=== PATIENT | female | born 1935 | race Asian ===

== ENCOUNTER 2019-03-23 16:26 | Inpatient (IN) | payer OTHER, MEDICAID ==
[~2019-03-23] VITALS: Ht 154.9 cm; Wt 53.5 kg
[2019-03-23 16:36] VITALS: BP_SYST 124; BP_SYST 151
[2019-03-23 18:46] LABS: BASOPHILS % (AUTO) 0.5 % (0.0-2.0); EOSINOPHILS # (AUTO) 0.1 K/uL (0.0-0.4); EOSINOPHILS % (AUTO) 1.9 % (0.0-4.0); HEMATOCRIT 37.6 % (36-48); HEMOGLOBIN 12.7 g/dL (12.0-16.0); LYMPHOCYTES # (AUTO) 1.3 K/uL (1.0-5.5); LYMPHOCYTES % (AUTO) 17.8 % (20.5-51.5); MEAN CORPUSCULAR HEMOGLOBIN 30 pg (27-31); MEAN CORPUSCULAR HGB CONC 34 % (32-36); MEAN CORPUSCULAR VOLUME 89 fL (79.0-98.0); MONOCYTES # (AUTO) 0.6 K/uL (0.0-1.0); MONOCYTES % (AUTO) 8.6 % (1.7-9.3); NEUTROPHILS # (AUTO) 5.1 K/uL (1.8-7.7); NEUTROPHILS % (AUTO) 71.2 % (40.0-70.0); PLATELET COUNT (AUTO) 276 K/uL (130-430); RED CELL DISTRIBUTION WIDTH 13.7 % (9.0-15.0); WHITE BLOOD COUNT (AUTO) 7.2 K/uL (4.8-10.8)
[2019-03-23 18:51] LABS: INR 0.9 (0.8-1.2); PROTHROMBIN TIME 9.5 SECS (9.5-12.5)
[2019-03-23 18:52] LABS: ANION GAP 4 (5-15); CALCIUM 8.5 mg/dL (8.4-11.0); CHLORIDE 107 mmol/L (98-107); CREATININE 0.55 mg/dL (0.55-1.30); GLUCOSE 85 mg/dL (70-99); SODIUM SERUM 141 mmol/L (136-145); UREA NITROGEN, BLOOD 18 mg/dL (8-21)
[2019-03-23 19:03] LABS: ALANINE AMINOTRANSFERASE 37 U/L (12-78); ALBUMIN 2.9 g/dL (3.4-4.8); ASPARTATE AMINOTRANSFERASE 22 U/L (10-37); FREE T4 (FREE THYROXINE) 1.4 ng/dl (0.8-1.5); TOTAL BILIRUBIN 0.3 mg/dL (0.0-1.0)
[2019-03-23 19:08] LABS: ALCOHOL, BLOOD < 3 mg/dL (<10)
[2019-03-23] MEDS ORDERED: DOCU-144 GT (20:22)
[2019-03-23] MEDS ORDERED: BISA10SU61 RC (20:22)
[2019-03-23] MEDS ORDERED: BISA5TAB10 PO (20:22)
[2019-03-23] MEDS ORDERED: SODI1TAB24 GT (20:22)
[2019-03-23] MEDS ORDERED: CALC-808 GT (20:22)
[2019-03-23] MEDS ORDERED: FLEETMO RC (20:22)
[2019-03-23] MEDS ORDERED: ACET325T53 GT (20:22)
[2019-03-23] MEDS ORDERED: ACET-73 GT (20:22)
[2019-03-23] MEDS ORDERED: ASCO500T20 PO (20:22)
[2019-03-23] MEDS ORDERED: INDA75CA IH (20:22)
[2019-03-23] MEDS ORDERED: LACO100T2 GT (20:22)
[2019-03-23] MEDS ORDERED: LACT250L14 GT (20:22)
[2019-03-23] MEDS ORDERED: MOM GT (20:22)
[2019-03-23] MEDS ORDERED: OMEP40CA33 GT (20:22)
[2019-03-23] MEDS ORDERED: ACET325C3 GT (20:22)
[2019-03-23 21:42] VITALS: BP_SYST 138
[2019-03-23] MEDS ORDERED: VANCOMYCIN HCL 1,000 MG in NS 250 ML IV SCH (22:00)
[2019-03-23] MEDS: NORMAL SALINE 5 ML DISP.SYRIN IVF SCH (22:00)
[2019-03-23] MEDS ORDERED: VANCOMYCIN HCL 1000 MG/VIAL IV ONE (23:15)
[2019-03-24 02:43] VITALS: BP_SYST 148
[2019-03-24] MEDS: NORMAL SALINE 5 ML DISP.SYRIN IVF SCH ×3 (06:00→21:21)
[2019-03-24 08:25] VITALS: BP_SYST 136
[2019-03-24] MEDS ORDERED: VANCOMYCIN HCL 1,000 MG in NS 250 ML IV SCH (09:00)
[2019-03-24 12:28] VITALS: BP_SYST 138
[2019-03-24] MEDS ORDERED: ASCORBIC ACID 500 MG TABLET GT ONE (13:45)
[2019-03-24] MEDS ORDERED: ASCORBIC ACID 500 MG TABLET PO ONE (13:45)
[2019-03-24] MEDS ORDERED: CALCIUM CARBONATE/VITAMIN D3 1 TAB TABLET GT ONE (14:00)
[2019-03-24] MEDS ORDERED: MINERAL OIL 133 ML ENEMA RC PRN (14:00)
[2019-03-24] MEDS ORDERED: DOCUSATE SODIUM 100 MG/10 ML UDC GT PRN (14:00)
[2019-03-24 15:10] VITALS: BP_SYST 126
[2019-03-24 20:00] VITALS: BP_SYST 159
[2019-03-24] MEDS: VANCOMYCIN HCL 500 MG in NS 100 ML IV SCH (22:48)
[2019-03-25 00:39] VITALS: BP_SYST 147
[2019-03-25 06:28] LABS: BASOPHILS % (AUTO) 0.6 % (0.0-2.0); EOSINOPHILS # (AUTO) 0.1 K/uL (0.0-0.4); EOSINOPHILS % (AUTO) 1.5 % (0.0-4.0); HEMATOCRIT 38.5 % (36-48); HEMOGLOBIN 12.9 g/dL (12.0-16.0); LYMPHOCYTES # (AUTO) 1.2 K/uL (1.0-5.5); LYMPHOCYTES % (AUTO) 16.9 % (20.5-51.5); MEAN CORPUSCULAR HEMOGLOBIN 30 pg (27-31); MEAN CORPUSCULAR HGB CONC 34 % (32-36); MEAN CORPUSCULAR VOLUME 90 fL (79.0-98.0); MONOCYTES # (AUTO) 0.6 K/uL (0.0-1.0); MONOCYTES % (AUTO) 8.9 % (1.7-9.3); NEUTROPHILS # (AUTO) 5.1 K/uL (1.8-7.7); NEUTROPHILS % (AUTO) 72.1 % (40.0-70.0); PLATELET COUNT (AUTO) 273 K/uL (130-430); RED BLOOD CELL COUNT(AUTO) 4.29 MIL/uL (4.2-6.2); RED CELL DISTRIBUTION WIDTH 13.4 % (9.0-15.0)
[2019-03-25 07:10] LABS: ANION GAP 4 (5-15); CHLORIDE 107 mmol/L (98-107); CREATININE 0.47 mg/dL (0.55-1.30); GLUCOSE 96 mg/dL (70-99); SODIUM SERUM 141 mmol/L (136-145); UREA NITROGEN, BLOOD 17 mg/dL (8-21)
[2019-03-25 07:21] LABS: CALCIUM 8.8 mg/dL (8.4-11.0)
[2019-03-25 08:10] VITALS: BP_SYST 159
[2019-03-25] MEDS: MILK OF MAGNESIA 30 ML UDC GT SCH (09:16)
[2019-03-25] MEDS: ACETAMINOPHEN 650 MG/20.3 ML UDC GT SCH (09:16)
[2019-03-25] MEDS: BISACODYL 5 MG TABLET.DR (DULCOLAX) GT SCH (09:17)
[2019-03-25] MEDS: LACOSAMIDE 100 MG TABLET GT SCH (09:17)
[2019-03-25] MEDS: LANSOPRAZOLE 30 MG CAPSULE.DR GT SCH (09:17)
[2019-03-25] MEDS: CALCIUM CARBONATE/VITAMIN D3 1 TAB TABLET GT SCH (09:17)
[2019-03-25] MEDS: ASCORBIC ACID 500 MG TABLET GT SCH (09:17)
[2019-03-25] MEDS: NORMAL SALINE 5 ML DISP.SYRIN IVF SCH ×2 (09:18→23:23)
[2019-03-25 11:20] VITALS: BP_SYST 146
[2019-03-25 15:22] VITALS: BP_SYST 129
[2019-03-25 20:00] VITALS: BP_SYST 153
[2019-03-25] MEDS: VANCOMYCIN HCL 500 MG in NS 100 ML IV SCH (23:22)
[2019-03-26 00:58] VITALS: BP_SYST 114
[2019-03-26] MEDS: NORMAL SALINE 5 ML DISP.SYRIN IVF SCH ×3 (06:34→21:44)
[2019-03-26 06:48] LABS: BASOPHILS # (AUTO) 0.1 K/uL (0.0-0.2); BASOPHILS % (AUTO) 0.7 % (0.0-2.0); EOSINOPHILS # (AUTO) 0.1 K/uL (0.0-0.4); EOSINOPHILS % (AUTO) 1.5 % (0.0-4.0); HEMATOCRIT 39.1 % (36-48); HEMOGLOBIN 13.2 g/dL (12.0-16.0); LYMPHOCYTES # (AUTO) 1.3 K/uL (1.0-5.5); LYMPHOCYTES % (AUTO) 18.4 % (20.5-51.5); MEAN CORPUSCULAR HEMOGLOBIN 30 pg (27-31); MEAN CORPUSCULAR HGB CONC 34 % (32-36); MEAN CORPUSCULAR VOLUME 89 fL (79.0-98.0); MONOCYTES # (AUTO) 0.6 K/uL (0.0-1.0); MONOCYTES % (AUTO) 8.7 % (1.7-9.3); NEUTROPHILS # (AUTO) 4.9 K/uL (1.8-7.7); NEUTROPHILS % (AUTO) 70.7 % (40.0-70.0); PLATELET COUNT (AUTO) 277 K/uL (130-430); RED BLOOD CELL COUNT(AUTO) 4.39 MIL/uL (4.2-6.2); RED CELL DISTRIBUTION WIDTH 13.6 % (9.0-15.0); WHITE BLOOD COUNT (AUTO) 6.9 K/uL (4.8-10.8)
[2019-03-26 07:11] LABS: ANION GAP 6 (5-15); CALCIUM 8.7 mg/dL (8.4-11.0); CHLORIDE 108 mmol/L (98-107); CREATININE 0.57 mg/dL (0.55-1.30); GLUCOSE 91 mg/dL (70-99); POTASSIUM 4.2 mmol/L (3.5-5.1); SODIUM SERUM 143 mmol/L (136-145); UREA NITROGEN, BLOOD 17 mg/dL (8-21)
[2019-03-26 07:47] VITALS: BP_SYST 114; BP_SYST 133
[2019-03-26] MEDS ORDERED: MUPIROCIN 2% TOPICAL OINTMENT 22 GM TP SCH (09:00)
[2019-03-26 11:15] VITALS: BP_SYST 110
[2019-03-26] MEDS: LANSOPRAZOLE 30 MG CAPSULE.DR GT SCH (11:45)
[2019-03-26] MEDS: MILK OF MAGNESIA 30 ML UDC GT SCH (11:45)
[2019-03-26] MEDS: MUPIROCIN 2% TOPICAL OINTMENT 22 GM NS SCH ×2 (11:45→21:43)
[2019-03-26] MEDS: BISACODYL 5 MG TABLET.DR (DULCOLAX) GT SCH (11:45)
[2019-03-26] MEDS: ACETAMINOPHEN 650 MG/20.3 ML UDC GT SCH (11:46)
[2019-03-26] MEDS: LACOSAMIDE 100 MG TABLET GT SCH (11:46)
[2019-03-26] MEDS: ASCORBIC ACID 500 MG TABLET GT SCH (11:46)
[2019-03-26] MEDS: CALCIUM CARBONATE/VITAMIN D3 1 TAB TABLET GT SCH (11:46)
[2019-03-26 17:21] VITALS: BP_SYST 123
[2019-03-26 20:00] VITALS: BP_SYST 135
[2019-03-26] MEDS: VANCOMYCIN HCL 500 MG in NS 100 ML IV SCH (22:11)
[2019-03-26] MEDS ORDERED: ACETAMINOPHEN 650 MG/20.3 ML UDC GT PRN (23:15)
[2019-03-27 00:51] VITALS: BP_SYST 155
[2019-03-27] MEDS: NORMAL SALINE 5 ML DISP.SYRIN IVF SCH ×2 (06:56→21:00)
[2019-03-27 08:00] VITALS: BP_SYST 133
[2019-03-27] MEDS: LACOSAMIDE 100 MG TABLET GT SCH (09:38)
[2019-03-27] MEDS: ASCORBIC ACID 500 MG TABLET GT SCH (09:39)
[2019-03-27] MEDS: LANSOPRAZOLE 30 MG CAPSULE.DR GT SCH (09:39)
[2019-03-27] MEDS: BISACODYL 5 MG TABLET.DR (DULCOLAX) GT SCH (09:39)
[2019-03-27] MEDS: CALCIUM CARBONATE/VITAMIN D3 1 TAB TABLET GT SCH (09:39)
[2019-03-27] MEDS: ACETAMINOPHEN 650 MG/20.3 ML UDC GT SCH (09:40)
[2019-03-27] MEDS: MILK OF MAGNESIA 30 ML UDC GT SCH (09:41)
[2019-03-27] MEDS: MUPIROCIN 2% TOPICAL OINTMENT 22 GM NS SCH ×2 (09:42→21:08)
[2019-03-27 11:24] VITALS: BP_SYST 125
[2019-03-27 15:13] VITALS: BP_SYST 129
[2019-03-27 20:32] VITALS: BP_SYST 149
[2019-03-27 20:47] VITALS: BP_SYST 149
[2019-03-27] MEDS ORDERED: VANCOMYCIN HCL 750 MG in NS 250 ML IV SCH (23:00)
[2019-03-28 01:58] VITALS: BP_SYST 147
== END 2019-03-28 00:02 | DRG 539 ==
LOC: SED 16:26 → SMU 19:29
PROVIDERS: ADMIT Internal Medicine; ATTEND Internal Medicine
DX: M86.8X7 Other osteomyelitis, ankle and foot (principal); G93.41 Metabolic encephalopathy; L03.115 Cellulitis of right lower limb; E44.1 Mild protein-calorie malnutrition; L89.899 Pressure ulcer of other site, unspecified stage; G40.909 Epilepsy, unspecified, not intractable, without status epilepticus; F03.90 Unspecified dementia, unspecified severity, without behavioral disturbance, psychotic disturbance, mood disturbance, and anxiety; I10 Essential (primary) hypertension; J44.9 Chronic obstructive pulmonary disease, unspecified; K56.41 Fecal impaction; M21.612 Bunion of left foot; M21.611 Bunion of right foot; Z66 Do not resuscitate; Z51.5 Encounter for palliative care; M21.172 Varus deformity, not elsewhere classified, left ankle; M21.171 Varus deformity, not elsewhere classified, right ankle; R13.10 Dysphagia, unspecified; Z93.1 Gastrostomy status; Z79.899 Other long term (current) drug therapy; Z22.322 Carrier or suspected carrier of Methicillin resistant Staphylococcus aureus; Z68.22 Body mass index [BMI] 22.0-22.9, adult
CPT/HCPCS: 36415; 71045; 74018; 78315; 80048; 80053; 80202-TC; 82140-TC; 83605; 83880; 84439; 84484; 85025; 85610-TC; 87040-TC; 87081; 93005; 99285; A9503; G0482; J3370; J7050

== ENCOUNTER 2019-08-24 12:22 | Inpatient (IN) | payer OTHER, MEDICAID ==
[~2019-08-24] VITALS: Ht 144.8 cm; Wt 59.0 kg
[2019-08-24 12:22] VITALS: BP_SYST 143
[~2019-08-24 12:22] MED LIST: ACET-73 GT; ACET325C3 GT; ACET325T53 GT; ASCO500T20 PO; BISA10SU61 RC; BISA5TAB10 PO; CALC-808 GT; DOCU-144 GT; FLEETMO RC; INDA75CA IH; LACO100T2 GT; LACT250L14 GT; MOM GT; OMEP40CA33 GT; SODI1TAB24 GT
[2019-08-24] MEDS ORDERED: NACL 0.9% 1,000 ML IV ONE ×2 (12:45→15:30)
[2019-08-24] MEDS ORDERED: IBUPROFEN 400 MG TABLET PO ONE (12:45)
[2019-08-24] MEDS ORDERED: ACETAMINOPHEN 500 MG TABLET PO ONE (12:45)
[2019-08-24] MEDS ORDERED: IPRATROPIUM/ALBUTEROL SULFATE 3 ML AMPUL.NEB (DUONEB) INH ONE (13:00)
[2019-08-24 13:12] LABS: BASOPHILS % (AUTO) 0.2 % (0.0-2.0); EOSINOPHILS % (AUTO) 0.2 % (0.0-4.0); HEMATOCRIT 39.5 % (36-48); LYMPHOCYTES # (AUTO) 0.9 K/uL (1.0-5.5); LYMPHOCYTES % (AUTO) 7.5 % (20.5-51.5); MEAN CORPUSCULAR HEMOGLOBIN 28 pg (27-31); MEAN CORPUSCULAR HGB CONC 33 % (32-36); MEAN CORPUSCULAR VOLUME 86 fL (79.0-98.0); MONOCYTES # (AUTO) 1.1 K/uL (0.0-1.0); MONOCYTES % (AUTO) 9.6 % (1.7-9.3); NEUTROPHILS # (AUTO) 9.5 K/uL (1.8-7.7); NEUTROPHILS % (AUTO) 82.5 % (40.0-70.0); PLATELET COUNT (AUTO) 274 K/uL (130-430); RED BLOOD CELL COUNT(AUTO) 4.59 MIL/uL (4.2-6.2); RED CELL DISTRIBUTION WIDTH 14.9 % (9.0-15.0); WHITE BLOOD COUNT (AUTO) 11.5 K/uL (4.8-10.8)
[2019-08-24 13:26] LABS: ANION GAP 9 (5-15); CALCIUM 8.5 mg/dL (8.4-11.0); CHLORIDE 97 mmol/L (98-107); CREATININE 0.53 mg/dL (0.55-1.30); GLUCOSE 90 mg/dL (70-99); POTASSIUM 4.3 mmol/L (3.5-5.1); SODIUM SERUM 132 mmol/L (136-145); UREA NITROGEN, BLOOD 15 mg/dL (8-21)
[2019-08-24 13:39] LABS: ALANINE AMINOTRANSFERASE 82 U/L (12-78); ALBUMIN 2.6 g/dL (3.4-4.8); ASPARTATE AMINOTRANSFERASE 61 U/L (10-37); TOTAL BILIRUBIN 0.5 mg/dL (0.0-1.0)
[2019-08-24 14:06] LABS: BILIRUBIN,URINE NEGATIVE (NEGATIVE); BLOOD, URINE NEGATIVE (NEGATIVE); CLARITY/URINE CLEAR (CLEAR); COLOR,URINE YELLOW (YELLOW); GLUCOSE,URINE NEGATIVE (NEGATIVE); KETONES,URINE NEGATIVE (NEGATIVE); LEUKOCYTE ESTERASE ,URINE NEGATIVE (NEGATIVE); NITRITE, URINE NEGATIVE (NEGATIVE); PH,URINE 7.5 (5.0-8.0); PROTEIN URINE 1+ (NEGATIVE)
[2019-08-24 14:19] LABS: BACTERIA,URINE FEW /HPF (None Seen); RBC,URINE 0-3 /HPF (0-3); WBC,URINE 0-3 /HPF (0-3)
[2019-08-24] MEDS ORDERED: PIPERACILLIN/TAZO 3.375 GM in NS 50 ML IV ONE (14:30)
[2019-08-24] MEDS ORDERED: PIPERACILLIN/TAZOBACTAM 3.375 GM/VIAL (ZOSYN) IV ONE (14:55)
[2019-08-24] MEDS ORDERED: AZITHROMYCIN 500 MG/VIAL (ZITHROMAX) IV ONE (16:40)
[2019-08-24] MEDS ORDERED: NOREPINEPHRINE BITARTRATE 4 MG in NS 246 ML IV ONE (16:45)
[2019-08-24] MEDS ORDERED: NOREPINEPHRINE 4 MG/4 ML VIAL IV ONE (16:48)
[2019-08-24 17:40] VITALS: BP_SYST 108
[2019-08-24] MEDS ORDERED: AZITHROMYCIN 500 MG in NS 250 ML IV SCH (19:00)
[2019-08-24 21:22] VITALS: BP_SYST 111
[2019-08-24] MEDS: PIPERACILLIN/TAZO 3.375/DEX-IS 50 ML IV SCH (23:15)
[2019-08-25 00:25] VITALS: BP_SYST 102
[2019-08-25] MEDS ORDERED: BISACODYL 10 MG/SUPPOSITORY RC SCH (02:45)
[2019-08-25] MEDS ORDERED: ACETAMINOPHEN 650 MG/20.3 ML UDC GT PRN (02:45)
[2019-08-25] MEDS ORDERED: MINERAL OIL 133 ML ENEMA RC PRN (02:45)
[2019-08-25] MEDS ORDERED: DOCUSATE SODIUM 100 MG CAPSULE PO PRN (02:45)
[2019-08-25] MEDS ORDERED: ACETAMINOPHEN 325 MG TABLET GT PRN (02:45)
[2019-08-25] MEDS: LEVOFLOXACIN 250 MG/D5W 50 ML IV SCH (03:45)
[2019-08-25] MEDS ORDERED: LEVOFLOXACIN 250 MG/D5W 50 ML IV ONE (03:55)
[2019-08-25 04:50] VITALS: BP_SYST 102
[2019-08-25] MEDS: PIPERACILLIN/TAZO 3.375/DEX-IS 50 ML IV SCH ×4 (05:26→23:45)
[2019-08-25 07:20] LABS: BASOPHILS % (AUTO) 0.3 % (0.0-2.0); EOSINOPHILS # (AUTO) 0.1 K/uL (0.0-0.4); EOSINOPHILS % (AUTO) 1.1 % (0.0-4.0); HEMATOCRIT 34.7 % (36-48); HEMOGLOBIN 11.4 g/dL (12.0-16.0); LYMPHOCYTES # (AUTO) 0.6 K/uL (1.0-5.5); LYMPHOCYTES % (AUTO) 6.3 % (20.5-51.5); MEAN CORPUSCULAR HEMOGLOBIN 28 pg (27-31); MEAN CORPUSCULAR HGB CONC 33 % (32-36); MEAN CORPUSCULAR VOLUME 87 fL (79.0-98.0); MONOCYTES # (AUTO) 0.9 K/uL (0.0-1.0); MONOCYTES % (AUTO) 10.2 % (1.7-9.3); NEUTROPHILS # (AUTO) 7.4 K/uL (1.8-7.7); NEUTROPHILS % (AUTO) 82.1 % (40.0-70.0); PLATELET COUNT (AUTO) 229 K/uL (130-430); RED BLOOD CELL COUNT(AUTO) 4.01 MIL/uL (4.2-6.2); RED CELL DISTRIBUTION WIDTH 15.1 % (9.0-15.0)
[2019-08-25 07:40] LABS: ALANINE AMINOTRANSFERASE 65 U/L (12-78); ANION GAP 9 (5-15); ASPARTATE AMINOTRANSFERASE 43 U/L (10-37); CALCIUM 7.6 mg/dL (8.4-11.0); CHLORIDE 103 mmol/L (98-107); CREATININE 0.53 mg/dL (0.55-1.30); GLUCOSE 111 mg/dL (70-99); SODIUM SERUM 136 mmol/L (136-145); TOTAL BILIRUBIN 0.4 mg/dL (0.0-1.0); UREA NITROGEN, BLOOD 14 mg/dL (8-21)
[2019-08-25] MEDS: IPRATROPIUM BROM 0.5 MG/2.5 ML VIAL.NEB (ATROVENT) INH SCH ×5 (07:52→23:34)
[2019-08-25 08:08] VITALS: BP_SYST 123
[2019-08-25] MEDS: MILK OF MAGNESIA 30 ML UDC GT SCH (09:13)
[2019-08-25] MEDS: LACOSAMIDE 100 MG TABLET GT SCH ×2 (09:13→21:06)
[2019-08-25] MEDS: ASCORBIC ACID 500 MG TABLET PO SCH (09:13)
[2019-08-25] MEDS: LANSOPRAZOLE 30 MG CAPSULE.DR GT SCH (09:14)
[2019-08-25] MEDS: SODIUM CHLORIDE 500 MG TABLET GT SCH ×2 (09:14→21:06)
[2019-08-25] MEDS: ACETAMINOPHEN 500 MG TABLET GT SCH (09:14)
[2019-08-25] MEDS: CALCIUM CARBONATE/VITAMIN D3 1 TAB TABLET GT SCH (09:15)
[2019-08-25 12:00] VITALS: BP_SYST 107
[2019-08-25 17:25] VITALS: BP_SYST 146
[2019-08-25 20:00] VITALS: BP_SYST 159
[2019-08-25] MEDS: ALBUTEROL SULFATE 0.083% 2.5 MG/3 ML VIAL.NEB INH PRN ×2 (20:09→23:34)
[2019-08-26 01:16] VITALS: BP_SYST 136
[2019-08-26] MEDS: IPRATROPIUM BROM 0.5 MG/2.5 ML VIAL.NEB (ATROVENT) INH SCH ×6 (02:25→23:27)
[2019-08-26] MEDS: LEVOFLOXACIN 250 MG/D5W 50 ML IV SCH (03:55)
[2019-08-26 04:20] VITALS: BP_SYST 106
[2019-08-26] MEDS: PIPERACILLIN/TAZO 3.375/DEX-IS 50 ML IV SCH ×2 (06:35→13:26)
[2019-08-26 08:00] VITALS: BP_SYST 175
[2019-08-26] MEDS: MILK OF MAGNESIA 30 ML UDC GT SCH (10:22)
[2019-08-26] MEDS: BISACODYL 5 MG TABLET.DR (DULCOLAX) PO PRN (10:23)
[2019-08-26] MEDS: LANSOPRAZOLE 30 MG CAPSULE.DR GT SCH (10:23)
[2019-08-26] MEDS: LACOSAMIDE 100 MG TABLET GT SCH ×2 (10:23→23:06)
[2019-08-26] MEDS: ACETAMINOPHEN 500 MG TABLET GT SCH (10:23)
[2019-08-26] MEDS: SODIUM CHLORIDE 500 MG TABLET GT SCH ×2 (10:24→23:06)
[2019-08-26] MEDS: ASCORBIC ACID 500 MG TABLET PO SCH (10:31)
[2019-08-26] MEDS: CALCIUM CARBONATE/VITAMIN D3 1 TAB TABLET GT SCH (10:31)
[2019-08-26 12:25] VITALS: BP_SYST 163
[2019-08-26 16:26] VITALS: BP_SYST 151
[2019-08-26] MEDS: PIPERACILLIN/TAZO 2.25G/DEX-IS 50 ML IV SCH ×2 (18:11→23:16)
[2019-08-27 01:19] VITALS: BP_SYST 150
[2019-08-27] MEDS: IPRATROPIUM BROM 0.5 MG/2.5 ML VIAL.NEB (ATROVENT) INH SCH ×5 (03:05→23:00)
[2019-08-27] MEDS: LEVOFLOXACIN 250 MG/D5W 50 ML IV SCH (03:47)
[2019-08-27] MEDS: PIPERACILLIN/TAZO 2.25G/DEX-IS 50 ML IV SCH ×4 (05:25→23:32)
[2019-08-27 07:08] LABS: BASOPHILS % (AUTO) 0.5 % (0.0-2.0); EOSINOPHILS # (AUTO) 0.1 K/uL (0.0-0.4); EOSINOPHILS % (AUTO) 1.9 % (0.0-4.0); HEMATOCRIT 33.6 % (36-48); HEMOGLOBIN 11.1 g/dL (12.0-16.0); LYMPHOCYTES # (AUTO) 0.8 K/uL (1.0-5.5); LYMPHOCYTES % (AUTO) 16.2 % (20.5-51.5); MEAN CORPUSCULAR HEMOGLOBIN 28 pg (27-31); MEAN CORPUSCULAR HGB CONC 33 % (32-36); MEAN CORPUSCULAR VOLUME 85 fL (79.0-98.0); MONOCYTES # (AUTO) 0.7 K/uL (0.0-1.0); MONOCYTES % (AUTO) 14.5 % (1.7-9.3); NEUTROPHILS # (AUTO) 3.4 K/uL (1.8-7.7); NEUTROPHILS % (AUTO) 66.9 % (40.0-70.0); PLATELET COUNT (AUTO) 279 K/uL (130-430); RED BLOOD CELL COUNT(AUTO) 3.94 MIL/uL (4.2-6.2); RED CELL DISTRIBUTION WIDTH 14.9 % (9.0-15.0); WHITE BLOOD COUNT (AUTO) 5.1 K/uL (4.8-10.8)
[2019-08-27 07:42] LABS: ALANINE AMINOTRANSFERASE 53 U/L (12-78); ANION GAP 7 (5-15); ASPARTATE AMINOTRANSFERASE 32 U/L (10-37); CALCIUM 7.8 mg/dL (8.4-11.0); CHLORIDE 101 mmol/L (98-107); CREATININE 0.51 mg/dL (0.55-1.30); GLUCOSE 103 mg/dL (70-99); POTASSIUM 4.1 mmol/L (3.5-5.1); SODIUM SERUM 135 mmol/L (136-145); TOTAL BILIRUBIN 0.3 mg/dL (0.0-1.0); UREA NITROGEN, BLOOD 15 mg/dL (8-21)
[2019-08-27 08:00] VITALS: BP_SYST 140
[2019-08-27] MEDS: ACETAMINOPHEN 500 MG TABLET GT SCH (09:42)
[2019-08-27] MEDS: LANSOPRAZOLE 30 MG CAPSULE.DR GT SCH (09:42)
[2019-08-27] MEDS: ASCORBIC ACID 500 MG TABLET PO SCH (09:43)
[2019-08-27] MEDS: CALCIUM CARBONATE/VITAMIN D3 1 TAB TABLET GT SCH (09:43)
[2019-08-27] MEDS: SODIUM CHLORIDE 500 MG TABLET GT SCH ×2 (09:43→21:42)
[2019-08-27] MEDS: MILK OF MAGNESIA 30 ML UDC GT SCH (09:44)
[2019-08-27] MEDS: LACOSAMIDE 100 MG TABLET GT SCH ×2 (09:44→21:42)
[2019-08-27 12:11] VITALS: BP_SYST 129
[2019-08-27 16:03] VITALS: BP_SYST 142
[2019-08-27 20:45] VITALS: BP_SYST 140
[2019-08-28 00:11] VITALS: BP_SYST 164
[2019-08-28] MEDS: IPRATROPIUM BROM 0.5 MG/2.5 ML VIAL.NEB (ATROVENT) INH SCH ×6 (03:20→23:34)
[2019-08-28] MEDS: LEVOFLOXACIN 250 MG/D5W 50 ML IV SCH (03:24)
[2019-08-28] MEDS: PIPERACILLIN/TAZO 2.25G/DEX-IS 50 ML IV SCH ×4 (05:25→23:02)
[2019-08-28 08:11] VITALS: BP_SYST 146
[2019-08-28] MEDS: MILK OF MAGNESIA 30 ML UDC GT SCH (10:37)
[2019-08-28] MEDS: SODIUM CHLORIDE 500 MG TABLET GT SCH ×2 (10:37→21:00)
[2019-08-28] MEDS: ACETAMINOPHEN 500 MG TABLET GT SCH (10:38)
[2019-08-28] MEDS: BISACODYL 5 MG TABLET.DR (DULCOLAX) PO PRN (10:38)
[2019-08-28] MEDS: LANSOPRAZOLE 30 MG CAPSULE.DR GT SCH (10:38)
[2019-08-28] MEDS: ASCORBIC ACID 500 MG TABLET PO SCH (10:38)
[2019-08-28] MEDS: CALCIUM CARBONATE/VITAMIN D3 1 TAB TABLET GT SCH (10:38)
[2019-08-28] MEDS: LACOSAMIDE 100 MG TABLET GT SCH ×2 (10:39→21:00)
[2019-08-28 11:20] VITALS: BP_SYST 146
[2019-08-28 12:49] VITALS: BP_SYST 135
[2019-08-28 16:45] VITALS: BP_SYST 129
[2019-08-28 20:00] VITALS: BP_SYST 130
[2019-08-29 01:20] VITALS: BP_SYST 175
[2019-08-29] MEDS: LEVOFLOXACIN 250 MG/D5W 50 ML IV SCH (03:30)
[2019-08-29] MEDS: IPRATROPIUM BROM 0.5 MG/2.5 ML VIAL.NEB (ATROVENT) INH SCH ×2 (03:37→08:09)
[2019-08-29] MEDS: PIPERACILLIN/TAZO 2.25G/DEX-IS 50 ML IV SCH (06:05)
[2019-08-29 08:00] VITALS: BP_SYST 146
[2019-08-29 08:41] VITALS: BP_SYST 149
[2019-08-29] MEDS: MILK OF MAGNESIA 30 ML UDC GT SCH ×2 (09:00→09:52)
[2019-08-29] MEDS: CALCIUM CARBONATE/VITAMIN D3 1 TAB TABLET GT SCH (09:51)
[2019-08-29] MEDS: ASCORBIC ACID 500 MG TABLET PO SCH (09:51)
[2019-08-29] MEDS: LANSOPRAZOLE 30 MG CAPSULE.DR GT SCH (09:52)
[2019-08-29] MEDS: SODIUM CHLORIDE 500 MG TABLET GT SCH (09:52)
[2019-08-29] MEDS: LACOSAMIDE 100 MG TABLET GT SCH (09:52)
[2019-08-29] MEDS: ACETAMINOPHEN 500 MG TABLET GT SCH (09:52)
== END 2019-08-29 10:25 | DRG 871 ==
LOC: SED 12:22 → STU 16:21 → SMU 08-25 23:44
PROVIDERS: ADMIT Internal Medicine Infectious Disease; ATTEND Internal Medicine Infectious Disease
DX: A41.9 Sepsis, unspecified organism (principal); J18.9 Pneumonia, unspecified organism; J44.0 Chronic obstructive pulmonary disease with (acute) lower respiratory infection; I10 Essential (primary) hypertension; F03.90 Unspecified dementia, unspecified severity, without behavioral disturbance, psychotic disturbance, mood disturbance, and anxiety; G40.909 Epilepsy, unspecified, not intractable, without status epilepticus; K56.41 Fecal impaction; Z93.1 Gastrostomy status
CPT/HCPCS: 36415; 71045; 74018; 80053; 81000-TC; 83605; 83880; 85025; 86710; 87040-TC; 87081; 87086; 93005; 94640; 96361; 96365; 99285; G0378; J0456; J1956; J2543; J7050; J7613

== ENCOUNTER 2020-09-21 08:57 | Inpatient (IN) | payer OTHER, MEDICAID, SELFPAY ==
[~2020-09-21] VITALS: Ht 147.3 cm; Wt 62.6 kg
[2020-09-21 08:57] VITALS: BP_SYST 112
[~2020-09-21 08:57] MED LIST changes: -ACET325C3 GT; +ACET325C5 GT; +OMEP40CA13 GT; -OMEP40CA33 GT
--- NOTE | 2020-09-21 08:57 | NUR ---
BROUGHT IN BY [facility] AND PLACED IN BED #4 AND TRIAGED. REPORT GIVEN TO ABIGAIL
--- NOTE | 2020-09-21 09:00 | NUR ---
PATIENT PLACED ONTO GURNEY INTO [facility] GOWN, MONITOR APPLIED, VITALS OBTAINED, TEMP AT TIME OF ARRIVAL 99.9, COVID PRECAUTIONS IN PLACE, PATIENT RESIDES AT [facility].
--- NOTE | 2020-09-21 09:05 | NUR ---
MD: MD AT BEDSIDE ASSESSING PATIENT, ORDERS OBTAINED.
--- NOTE | 2020-09-21 09:15 | NUR ---
LAB: SKI TOW OPERATOR AT BEDSIDE, BLOOD DRAW COMPLETED.
--- NOTE | 2020-09-21 09:20 | NUR ---
X-RAY: TECH AT BEDSIDE PERFORMING X-RAY PER ORDER.
--- NOTE | 2020-09-21 09:25 | NUR ---
STEPHEN 16F: INSERTED STEPHEN 16 F USING STERILE TECHNIQUE, PATIENT TOLERATED WELL.
--- NOTE | 2020-09-21 09:30 | NUR ---
BLOOD CULTURES: BLOOD CULTURES OBTAINED AND SENT TO LAB
[2020-09-21 09:57] LABS: BASOPHILS % (AUTO) 0.1 % (0.0-2.0); EOSINOPHILS # (AUTO) 0.2 K/uL (0.0-0.4); EOSINOPHILS % (AUTO) 1.5 % (0.0-4.0); HEMATOCRIT 35.6 % (36-48); HEMOGLOBIN 11.5 g/dL (12.0-16.0); LYMPHOCYTES # (AUTO) 0.4 K/uL (1.0-5.5); MEAN CORPUSCULAR HEMOGLOBIN 26 pg (27-31); MEAN CORPUSCULAR HGB CONC 32 % (32-36); MEAN CORPUSCULAR VOLUME 80 fL (79.0-98.0); MONOCYTES # (AUTO) 0.4 K/uL (0.0-1.0); MONOCYTES % (AUTO) 3.6 % (1.7-9.3); NEUTROPHILS # (AUTO) 9.6 K/uL (1.8-7.7); NEUTROPHILS % (AUTO) 90.8 % (40.0-70.0); PLATELET COUNT (AUTO) 307 K/uL (130-430); RED BLOOD CELL COUNT(AUTO) 4.46 MIL/uL (4.2-6.2); RED CELL DISTRIBUTION WIDTH 17.1 % (9.0-15.0); WHITE BLOOD COUNT (AUTO) 10.6 K/uL (4.8-10.8)
[2020-09-21 10:08] LABS: BILIRUBIN,URINE NEGATIVE (NEGATIVE); CLARITY/URINE SL CLOUDY (CLEAR); COLOR,URINE YELLOW (YELLOW); GLUCOSE,URINE NEGATIVE (NEGATIVE); KETONES,URINE NEGATIVE (NEGATIVE); LEUKOCYTE ESTERASE ,URINE 3+ (NEGATIVE); NITRITE, URINE NEGATIVE (NEGATIVE); PH,URINE 6.5 (5.0-8.0); PROTEIN URINE NEGATIVE (NEGATIVE); UROBILINOGEN,URINE 0.2 (0.2-1.0)
[2020-09-21 10:10] LABS: ANION GAP 10 (5-15); CHLORIDE 114 mmol/L (98-107); GLUCOSE 72 mg/dL (70-99); SODIUM SERUM 143 mmol/L (136-145); UREA NITROGEN, BLOOD 27 mg/dL (8-21)
[2020-09-21] MEDS ORDERED: cefTRIAXone 2 GM VIAL ONE (10:12)
[2020-09-21] MEDS ORDERED: MAGNESIUM SULFATE 50 ML IV ONE (10:15)
[2020-09-21] MEDS ORDERED: KCL 40mEq in D5/0.45NS 1000 mL 1,000 ML IV ONE (10:15)
[2020-09-21 10:16] LABS: ALANINE AMINOTRANSFERASE 35 U/L (12-78); ALBUMIN 1.7 g/dL (3.4-4.8); ASPARTATE AMINOTRANSFERASE 31 U/L (10-37); BILIRUBIN,DIRECT 0.1 mg/dL (0.0-0.3); LIPASE 123 U/L (73-393); TOTAL BILIRUBIN 0.2 mg/dL (0.0-1.0)
[2020-09-21 10:18] LABS: POTASSIUM 2.8 mmol/L (3.5-5.1)
[2020-09-21 10:19] LABS: CALCIUM 5.9 mg/dL (8.4-11.0)
--- NOTE | 2020-09-21 10:19 | NUR ---
LABS: AWARE OF CRITICAL LAB VALUES
--- NOTE | 2020-09-21 10:20 | NUR ---
ORDERS: ORDERS OBTAINED AND CARRIED OUT FOR K+ RESULT 2.8, PATIENT REMAINS ON MONITOR.
[2020-09-21 10:21] LABS: BLOOD, URINE TRACE (NEGATIVE)
[2020-09-21] MEDS ORDERED: NACL 0.9% 1,000 ML IV ONE ×2 (10:30→12:15)
--- NOTE | 2020-09-21 10:30 | NUR ---
IV ACCESS OBTAINED IN THE LEFT HAND WITH 24G.
[2020-09-21 10:38] LABS: BACTERIA,URINE FEW /HPF (None Seen); WBC,URINE 50-80 /HPF (0-3)
--- NOTE | 2020-09-21 10:45 | NUR ---
IV ACCESS PULLED OUT WHEN PT MOVED. RN WILL RE-START IV. RN INSERTED 22G INTO LEFT HAND . IV ATB INFUSING.
--- NOTE | 2020-09-21 10:45 | NUR ---
US: SMALL BRAKE FORM OPERATOR AT BEDSIDE COMPLETING EXAM OF RIGHT BREAST
--- NOTE | 2020-09-21 11:00 | NUR ---
IV ACCESS PULLED OUT , RN WILL RE-START IV.
--- NOTE | 2020-09-21 12:01 | NUR ---
IV ACCESS FOR 3RD TIME PLACED INTO RIGHT FOREARM. K+ INFUSING NOW. IV ATB COMPLETED.
--- NOTE | 2020-09-21 12:02 | NUR ---
ADMIT ORDERS OBTAINED FROM MD HEWITT. NOTED AND PLACED INTO [facility].
[2020-09-21] MEDS: NACL 0.9% 1,000 ML IV SCH (12:45)
[2020-09-21] MEDS ORDERED: BISACODYL 5 MG TABLET.DR (DULCOLAX) PO PRN (12:45)
--- NOTE | 2020-09-21 12:45 | NUR ---
Patient given written and verbal discharge instructions and verbalizes understanding. PT HAS BEEN ADMITTED TO THE TELE FLOOR UNDER MD KASH EDWARDS MD discussed with patient the results and treatment provided. Patient in stable condition. Opportunity for questions provided and answered. Medication side effect fact sheet provided.
[2020-09-21] MEDS ORDERED: MILK OF MAGNESIA 30 ML UDC GT ONE (13:00)
[2020-09-21] MEDS ORDERED: ACETAMINOPHEN 650 MG/20.3 ML UDC GT PRN ×2 (13:00)
--- NOTE | 2020-09-21 13:09 | NUR ---
CONSULTATION PAGED/CALLED Reason for Consultation: [] ACUTE KIDNEY INJURY Person Who was Notified: [] LUCAS Consulting Physician: [] DR SIERRA Family Law Attorney Specialty: [] TRANSMITTER TESTER Ordering Physician: [] DR HEWITT ([facility])
--- NOTE | 2020-09-21 13:10 | NUR ---
Admission Note Received patient from ER with diagnosis of Sepsis, UTI and Cellulitis. Initial Plan of Care discussed with-patient just stared at this typewriter mechanic, patient unable to verbalize her understanding. Noted clamped G-tube flushing well with no residual, Mendoza draining to gravity with milky, yellowish drainage. BLE contraction, Oriented to room, call light, pain management and safety-reinforce all teachings. Side rails up x3, bed alarm on, room close to nursing station for safety.
[2020-09-21 13:15] VITALS: BP_SYST 123
--- NOTE | 2020-09-21 13:21 | NUR ---
CONSULTATION PAGED/CALLED Reason for Consultation: SEPSIS Person Who was Notified: ANITA Consulting Physician: KAITLYNN Program Proposals Coordinator Specialty: ID Ordering Physician: KASH
[2020-09-21] MEDS: VANCOMYCIN HCL 750 MG in NS 250 ML IV SCH (14:10)
[2020-09-21] MEDS ORDERED: CALCIUM GLUCONATE 1 GM/10 ML VIAL IVP ONE (14:30)
[2020-09-21] MEDS ORDERED: SODIUM BICARBONATE 650 MG TABLET GT ONE (14:30)
[2020-09-21] MEDS ORDERED: PIPERACILLIN/TAZO 3.375 GM in NS 50 ML IV SCH (15:00)
--- NOTE | 2020-09-21 15:15 | NUR ---
G-TUBE FEEDING G-tube feeding of Jevity 1.5 now infusing well at ordered rate of 50 ml/hr.
[2020-09-21] MEDS ORDERED: CALCIUM GLUCONATE 2 GM in NS 100 ML IV ONE (15:30)
[2020-09-21 16:00] VITALS: BP_SYST 111
[2020-09-21] MEDS ORDERED: PIPERACILLIN/TAZO 3.375/DEX-IS 50 ML IV SCH (18:00)
--- NOTE | 2020-09-21 18:25 | NUR ---
CLOSING NOTE/FEVER Pt resting quietly in bed with no s/s resp distress, no s/s pain or discomfort, temperature resolved now 98.4 F. Jevity 1.5 infusing well via g-tube at ordered rate. IVF infusing well at ordered rate with no s/s infiltration to site. HOB elevated for aspiration precautions. All precautions remain in place.
--- NOTE | 2020-09-21 19:50 | NUR ---
Opening notes Pt awake, eyes open, non-verbal. VSS, afebrile, Temp 99.0. GT feeding jevity 1.5 running at 50cc/hr, no residual noted. Water flush given as ordered. Marko arms and upper chest rash noted pt scratching arms. IVF infusing at ordered rate R. FA IV dressing C/D/I. Bed low, locked, siderails up, seizure precaution maintained. To monitor.
[2020-09-21 20:00] VITALS: BP_SYST 115
[2020-09-21] MEDS: CALCIUM CARBONATE/VITAMIN D3 1 TAB TABLET GT SCH (20:36)
[2020-09-21] MEDS: SODIUM BICARBONATE 650 MG TABLET GT SCH (20:36)
--- NOTE | 2020-09-22 00:05 | NUR ---
Rounds Pt asleep, easily awakens, no s/s distress noted. IVF infusing at ordered rate R. arm no s/s infiltration. GT feeding running at ordered rate. Safety maintained. Bed low, locked, siderails up x3, alarm on. To monitor.
[2020-09-22 00:08] VITALS: BP_SYST 110
[2020-09-22] MEDS: NACL 0.9% 1,000 ML IV SCH ×3 (00:50→18:03)
--- NOTE | 2020-09-22 01:05 | NUR ---
MD avis albarran, informed of pt's rash and ordered for Scabies screening and Elimite cream.
[2020-09-22] MEDS ORDERED: PERMETHRIN 5% 60 GM CREAM.GM. TP ONE (01:15)
--- NOTE | 2020-09-22 05:30 | NUR ---
MRSA nares collected and sent to lab.
[2020-09-22] MEDS: LANSOPRAZOLE 30 MG CAPSULE.DR GT SCH (06:10)
--- NOTE | 2020-09-22 06:20 | NUR ---
Closing notes Pt awake, calm, non verbal, afebrile. GT feeding jevity 1.5 running at 50cc/hr, tolerating well. Water flush given as ordered. IVF infusing at ordered rate R. FA IV no s/s infiltration, dressing C/D/I. Bed low, locked, siderails up x4, seizure precaution maintained. To endorse scabies scraping/elimite cream to dayshift.
[2020-09-22 07:56] LABS: BASOPHILS % (AUTO) 0.3 % (0.0-2.0); EOSINOPHILS # (AUTO) 0.1 K/uL (0.0-0.4); EOSINOPHILS % (AUTO) 1.2 % (0.0-4.0); HEMATOCRIT 31.2 % (36-48); LYMPHOCYTES # (AUTO) 0.4 K/uL (1.0-5.5); MEAN CORPUSCULAR HEMOGLOBIN 26 pg (27-31); MEAN CORPUSCULAR HGB CONC 32 % (32-36); MEAN CORPUSCULAR VOLUME 80 fL (79.0-98.0); MONOCYTES # (AUTO) 0.6 K/uL (0.0-1.0); MONOCYTES % (AUTO) 8.8 % (1.7-9.3); NEUTROPHILS # (AUTO) 5.9 K/uL (1.8-7.7); NEUTROPHILS % (AUTO) 83.7 % (40.0-70.0); PLATELET COUNT (AUTO) 254 K/uL (130-430); RED BLOOD CELL COUNT(AUTO) 3.92 MIL/uL (4.2-6.2); RED CELL DISTRIBUTION WIDTH 17.1 % (9.0-15.0); WHITE BLOOD COUNT (AUTO) 7.1 K/uL (4.8-10.8)
[2020-09-22 08:00] VITALS: BP_SYST 127
--- NOTE | 2020-09-22 08:00 | NUR ---
Opening notes Received report from night nurse. Patient is nonverbal. On room air and tolerating well with no signs of shortness of breath noted. G tube in place infusing feedings as at 50ml/hr. No residual noted. Mendoza catheter ini place, draining by gravity. IV is patent, infusing fluids as ordered. Bed locked and in lowest position. Call light within reach. bed alarm on. Contact, fall, safety, aspiration precautions in place. Will continue to monitor.
[2020-09-22] MEDS: ACETAMINOPHEN 650 MG/20.3 ML UDC GT SCH (08:19)
[2020-09-22] MEDS: ASCORBIC ACID 500 MG TABLET GT SCH (08:19)
[2020-09-22] MEDS: CALCIUM CARBONATE/VITAMIN D3 1 TAB TABLET GT SCH ×2 (08:19→22:16)
[2020-09-22] MEDS: SODIUM BICARBONATE 650 MG TABLET GT SCH ×2 (08:20→22:16)
[2020-09-22] MEDS: LACOSAMIDE 100 MG TABLET GT SCH (08:20)
[2020-09-22 08:44] LABS: ANION GAP 8 (5-15); CHLORIDE 108 mmol/L (98-107); GLUCOSE 130 mg/dL (70-99); PHOSPHORUS 2.2 mg/dL (2.7-4.5); POTASSIUM 4.5 mmol/L (3.5-5.1); SODIUM SERUM 141 mmol/L (136-145); UREA NITROGEN, BLOOD 24 mg/dL (8-21)
[2020-09-22] MEDS ORDERED: BISACODYL 10 MG/SUPPOSITORY RC PRN (09:00)
[2020-09-22] MEDS ORDERED: VANCOMYCIN HCL 1,000 MG in NS 250 ML IV SCH (09:00)
[2020-09-22] MEDS: cefTRIAXone 1 GM in D5W 50 ML IV SCH (09:10)
[2020-09-22 10:23] LABS: URINE SODIUM, RANDOM 25 mmol/L (40-220)
--- NOTE | 2020-09-22 10:30 | NUR ---
Elimite cream applied as ordered to arms and chest. Orders to wash off skin in 24 hours.
[2020-09-22] MEDS: MILK OF MAGNESIA 30 ML UDC GT SCH (11:28)
[2020-09-22] MEDS: VANCOMYCIN HCL 750 MG in NS 250 ML IV SCH (12:07)
[2020-09-22 12:37] VITALS: BP_SYST 140
[2020-09-22] MEDS ORDERED: NA PHOS 30 MM in NS 250 ML IV ONE (15:00)
[2020-09-22 16:23] VITALS: BP_SYST 145
--- NOTE | 2020-09-22 18:33 | NUR ---
Closing notes Patient is nonverbal. On room air and tolerating well with no signs of shortness of breath noted. G tube in place infusing feedings as at 50ml/hr. No residual noted. Mendoza catheter in place, draining by gravity. IV is patent, infusing fluids as ordered. Bed locked and in lowest position. Call light within reach. bed alarm on. Contact, fall, safety, aspiration precautions in place. Will endorse to night nurse.
[2020-09-22 21:00] VITALS: BP_SYST 129
--- NOTE | 2020-09-22 21:00 | NUR ---
Patient is awake non verbal lower legs are contracted comfort measures implemented off loading with pillows helpful chest movement symmetrical .
--- NOTE | 2020-09-22 23:31 | NUR ---
JEVITY 1.5 running @ 50 ML HOUR , HOB is elevated Tube patent Residual 10 ML Water flush also tolerated .
--- NOTE | 2020-09-22 23:35 | NUR ---
ISOLATION Precautions continued scattered Rash noted upper & lower areas Elimite ointment applied continue to monitor .
--- NOTE | 2020-09-23 01:12 | NUR ---
Bed Bath given Reposition and Turning off loading with pillows BEDBATH tolerated .
--- NOTE | 2020-09-23 01:14 | NUR ---
Large stool noted , linin change kept clean also dry as needed .
[2020-09-23 02:00] VITALS: BP_SYST 141
[2020-09-23] MEDS: NACL 0.9% 1,000 ML IV SCH ×2 (03:43→15:02)
[2020-09-23] MEDS: LANSOPRAZOLE 30 MG CAPSULE.DR GT SCH (05:59)
--- NOTE | 2020-09-23 06:02 | NUR ---
Hourly Rounding patient Resting HOB elevated chest movement symmetrical position change tolerated .
[2020-09-23 07:18] LABS: ANION GAP 7 (5-15); CALCIUM 7.2 mg/dL (8.4-11.0); CHLORIDE 112 mmol/L (98-107); CREATININE 0.62 mg/dL (0.55-1.30); GLUCOSE 118 mg/dL (70-99); PHOSPHORUS 2.8 mg/dL (2.7-4.5); SODIUM SERUM 143 mmol/L (136-145); UREA NITROGEN, BLOOD 17 mg/dL (8-21)
--- NOTE | 2020-09-23 07:28 | NUR ---
Nutrition Update Gustavo Scale 13 noted. Pt admitted for Sepsis, UTI, Cellulitis Diet: Jevity 1.5 at 50ml/hr, FWF 100ml Q4H via GT BMI: 28.8 kg/m2 RD to follow per nutrition care standards
--- NOTE | 2020-09-23 07:35 | NUR ---
Opening notes Received report from night nurse. On room air and tolerating well with no signs of shortness of breath noted. G tube in place infusing feedings as at 50ml/hr. No residual noted. Mendoza catheter in place, draining by gravity. IV is patent, infusing fluids as ordered. Bed locked and in lowest position. Call light within reach. bed alarm on. Contact, fall, safety, aspiration precautions in place. Will continue to monitor.
[2020-09-23 08:00] VITALS: BP_SYST 126
[2020-09-23] MEDS: CALCIUM CARBONATE/VITAMIN D3 1 TAB TABLET GT SCH ×2 (08:04→20:07)
[2020-09-23] MEDS: LACOSAMIDE 100 MG TABLET GT SCH (08:05)
[2020-09-23] MEDS: ASCORBIC ACID 500 MG TABLET GT SCH (08:05)
[2020-09-23] MEDS: ACETAMINOPHEN 650 MG/20.3 ML UDC GT SCH (08:05)
[2020-09-23] MEDS: SODIUM BICARBONATE 650 MG TABLET GT SCH ×2 (08:05→20:07)
[2020-09-23] MEDS: cefTRIAXone 1 GM in D5W 50 ML IV SCH (09:03)
--- NOTE | 2020-09-23 09:40 | NUR ---
NEW IV Iv site was infiltrated. New IV started on left hand 22 gauge. IV fluids infusing as ordered with no signs of infiltration noted. Will monitor.
[2020-09-23] MEDS: MILK OF MAGNESIA 30 ML UDC GT SCH (11:36)
[2020-09-23 12:00] VITALS: BP_SYST 160
[2020-09-23] MEDS: VANCOMYCIN HCL 750 MG in NS 250 ML IV SCH (12:12)
[2020-09-23 12:25] LABS: BASOPHILS % (AUTO) 0.7 % (0.0-2.0); EOSINOPHILS # (AUTO) 0.1 K/uL (0.0-0.4); EOSINOPHILS % (AUTO) 2.1 % (0.0-4.0); HEMOGLOBIN 9.7 g/dL (12.0-16.0); LYMPHOCYTES % (AUTO) 21.3 % (20.5-51.5); MEAN CORPUSCULAR HEMOGLOBIN 25 pg (27-31); MEAN CORPUSCULAR HGB CONC 31 % (32-36); MEAN CORPUSCULAR VOLUME 81 fL (79.0-98.0); MONOCYTES # (AUTO) 0.8 K/uL (0.0-1.0); NEUTROPHILS # (AUTO) 2.9 K/uL (1.8-7.7); NEUTROPHILS % (AUTO) 59.9 % (40.0-70.0); PLATELET COUNT (AUTO) 242 K/uL (130-430); RED BLOOD CELL COUNT(AUTO) 3.83 MIL/uL (4.2-6.2); RED CELL DISTRIBUTION WIDTH 17.8 % (9.0-15.0); WHITE BLOOD COUNT (AUTO) 4.9 K/uL (4.8-10.8)
--- NOTE | 2020-09-23 13:09 | NUR ---
Dietitian Recommendations *Continue Jevity 1.5 at 50ml/hr, FWF 100ml Q4hr via GT. Provides: 1800 Kcal, 76.5 gm protein and FWF 1512ml fluids daily. Meets: 113% of upper end of estimated calorie needs and 83% of upper end of estimated protein needs. Please see Nutritional Assessment for details. SARY, RD
--- NOTE | 2020-09-23 14:47 | NUR ---
Patient had large bowel movement. Cleaned and repositioned.
[2020-09-23 15:26] VITALS: BP_SYST 162
--- NOTE | 2020-09-23 18:33 | NUR ---
Closing notes Patient is resting in bed. On room air and tolerating well with no signs of shortness of breath noted. G tube in place infusing feedings as at 50ml/hr. No residual noted. Mendoza catheter in place, draining by gravity. IV is patent, infusing fluids as ordered. Bed locked and in lowest position. Call light within reach. bed alarm on. Contact, fall, safety, aspiration, and seizure precautions remain in place. Will endorse to night nurse.
--- NOTE | 2020-09-23 19:15 | NUR ---
CHANGE OF SHIFT; endorsed by day shift. on contact isolation. no res.p distress. on fall risk and seizure precautions. pt. unable to use call light. pt. room close to nurses station, bed alarm on.
[2020-09-23 20:30] VITALS: BP_SYST 160
--- NOTE | 2020-09-23 20:45 | NUR ---
NOTES: pt. awake, non verbal, seems to understand . VS checked. IV infusing via left hand. on g tube feed @ 50 cc/hr. 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 noted some swelling on upper extremities. pt. contracted on lower extremities. side rails, seizure pads in place. stevenson cath to osd. pt. had a bowel movement, mary care done . repositioned and turn to sides.
--- NOTE | 2020-09-23 22:30 | NUR ---
NOTES: pt. been dozing on and off. checked g tube , no residual, due medications given. some bruising on left upper arm . on contact isolation.
--- NOTE | 2020-09-24 00:30 | NUR ---
NOTES: repositioned. no distress. pt. calm and resting.
[2020-09-24 02:15] VITALS: BP_SYST 158
--- NOTE | 2020-09-24 03:00 | NUR ---
NOTES: condition observed, continue to monitor,
--- NOTE | 2020-09-24 05:00 | NUR ---
NOTES: g tube feed leaking. had another small amt of stool. partial am care/mary care done. reposiitoned. turn to sides. IVF patent.
[2020-09-24] MEDS: NACL 0.9% 1,000 ML IV SCH (05:10)
--- NOTE | 2020-09-24 06:40 | NUR ---
CLOSING NOTES; pt. slleping when checked. continue g tube feeding. IV site patent. stevenson cath intact. for further care and assist. will endorse to incoming shift.
[2020-09-24] MEDS: LANSOPRAZOLE 30 MG CAPSULE.DR GT SCH (06:51)
[2020-09-24 08:00] VITALS: BP_SYST 126
[2020-09-24] MEDS: ASCORBIC ACID 500 MG TABLET GT SCH (09:23)
[2020-09-24] MEDS: SODIUM BICARBONATE 650 MG TABLET GT SCH ×2 (09:23→20:16)
[2020-09-24] MEDS: ACETAMINOPHEN 650 MG/20.3 ML UDC GT SCH (09:23)
[2020-09-24] MEDS: CALCIUM CARBONATE/VITAMIN D3 1 TAB TABLET GT SCH ×2 (09:23→20:16)
[2020-09-24] MEDS: LACOSAMIDE 100 MG TABLET GT SCH (09:27)
[2020-09-24] MEDS: cefTRIAXone 1 GM in D5W 50 ML IV SCH (09:28)
--- NOTE | 2020-09-24 09:55 | NUR ---
am meds, given, pt cleansed for bm. 10 cc residual noted from g-tube, g-tube dressing changed.
[2020-09-24 11:23] VITALS: BP_SYST 136
[2020-09-24] MEDS: MILK OF MAGNESIA 30 ML UDC GT SCH (12:05)
[2020-09-24] MEDS: VANCOMYCIN HCL 750 MG in NS 250 ML IV SCH (12:09)
[2020-09-24 15:24] VITALS: BP_SYST 146
--- NOTE | 2020-09-24 19:15 | NUR ---
CHANGE OF SHIFT; endorsed by day shift. in no acute distress. on contact isolation for scabies ( tested negative) on seizure precautions. pt. unable to use call light.
--- NOTE | 2020-09-24 19:38 | NUR ---
CLOSING PT HAS BEEN STABLE, NO RESIDUAL NOTED, PT TURNED AND REPOSITIONE Q2 HOURS WITH JOHAN ROUSE. ENDORSED TO NIGHT NURSE.
--- NOTE | 2020-09-24 19:45 | NUR ---
NOTES: pt. sleeping when received. on room air. IVF infusing. stevenson cath to osd. padded rails. on cardiac specialist and shows sinus rhythm.
--- NOTE | 2020-09-24 20:20 | NUR ---
NOTES: VS checked. g tube feeding @ 50 cc/hr with Jevity. g tube site intact, checked for residual.
[2020-09-24 20:30] VITALS: BP_SYST 159
--- NOTE | 2020-09-24 22:00 | NUR ---
NOTES: pt. had bm, due hs care and mary care done by ROAD SUPERVISOR. repositioned, turn to sides. pt. contracted on lower extremities. pt. awake, but non verbal. multiple skin rashes on both arms and chest area.
--- NOTE | 2020-09-25 | NUR ---
NOTES; pt. repositioned. IVF continuous. g tube feed at same rate. free water given. observed contact isolation. bruising on left arm noted.
[2020-09-25 01:10] VITALS: BP_SYST 148
[2020-09-25] MEDS: NACL 0.9% 1,000 ML IV SCH (01:42)
--- NOTE | 2020-09-25 02:30 | NUR ---
NOTES: Dr. Mccarthy here and informed about isolation jovani, test was negative, MRSA nares negative as well, will dc isolation, Dr. Mccarthy he never put pt. on isolation in the first place , only saying to take precautions.
--- NOTE | 2020-09-25 04:14 | NUR ---
NOTES: condition unchanged. continue to monitor. off isolation, charge nurse informed.
--- NOTE | 2020-09-25 05:00 | NUR ---
NOTES: pt. am care done. had another bm. repositioned, turn to sides.
--- NOTE | 2020-09-25 06:00 | NUR ---
NOTES: g tube site dressing changed. IVF continuous. stevenson cath to osd. on seizure and fall risk precautions. condition oberved. for further care and assist. will endorse to incoming shift.
[2020-09-25] MEDS: LANSOPRAZOLE 30 MG CAPSULE.DR GT SCH (06:36)
[2020-09-25 06:37] LABS: ANION GAP 7 (5-15); CALCIUM 7.5 mg/dL (8.4-11.0); CHLORIDE 111 mmol/L (98-107); CREATININE 0.56 mg/dL (0.55-1.30); GLUCOSE 124 mg/dL (70-99); POTASSIUM 3.8 mmol/L (3.5-5.1); SODIUM SERUM 143 mmol/L (136-145); UREA NITROGEN, BLOOD 15 mg/dL (8-21)
--- NOTE | 2020-09-25 06:45 | NUR ---
CLOSING NOTES; CONDITION UNCHANGED. CONTINUE TO MONITOR.
[2020-09-25 07:19] LABS: BASOPHILS % (AUTO) 0.7 % (0.0-2.0); EOSINOPHILS # (AUTO) 0.1 K/uL (0.0-0.4); EOSINOPHILS % (AUTO) 2.7 % (0.0-4.0); HEMATOCRIT 31.8 % (36-48); HEMOGLOBIN 10.1 g/dL (12.0-16.0); LYMPHOCYTES # (AUTO) 0.9 K/uL (1.0-5.5); LYMPHOCYTES % (AUTO) 19.6 % (20.5-51.5); MEAN CORPUSCULAR HEMOGLOBIN 26 pg (27-31); MEAN CORPUSCULAR HGB CONC 32 % (32-36); MEAN CORPUSCULAR VOLUME 80 fL (79.0-98.0); MONOCYTES # (AUTO) 0.4 K/uL (0.0-1.0); MONOCYTES % (AUTO) 8.5 % (1.7-9.3); NEUTROPHILS # (AUTO) 3.1 K/uL (1.8-7.7); NEUTROPHILS % (AUTO) 68.5 % (40.0-70.0); PLATELET COUNT (AUTO) 242 K/uL (130-430); RED BLOOD CELL COUNT(AUTO) 3.98 MIL/uL (4.2-6.2); RED CELL DISTRIBUTION WIDTH 17.5 % (9.0-15.0); WHITE BLOOD COUNT (AUTO) 4.5 K/uL (4.8-10.8)
--- NOTE | 2020-09-25 08:00 | NUR ---
INITIAL NOTES: RECEIVED PT FROM LAMINA SEARCHER RN. AWAKE AND ORIENTED TO PERSON. BREATHING EVEN AND NON LABORED. STEPHEN CATHETER DRAINING BY GRAVITY. BED LOCKED AND IN LOWEST POSITION. ALARM ON. SAFETY AND FALL PRECAUTION REINFORCED. CALL LIGHT WITHIN REACH.
[2020-09-25 08:30] VITALS: BP_SYST 142
[2020-09-25] MEDS: SODIUM BICARBONATE 650 MG TABLET GT SCH (10:23)
[2020-09-25] MEDS: CALCIUM CARBONATE/VITAMIN D3 1 TAB TABLET GT SCH (10:23)
[2020-09-25] MEDS: ASCORBIC ACID 500 MG TABLET GT SCH (10:24)
[2020-09-25] MEDS: ACETAMINOPHEN 650 MG/20.3 ML UDC GT SCH (10:25)
[2020-09-25] MEDS: cefTRIAXone 1 GM in D5W 50 ML IV SCH (10:26)
[2020-09-25] MEDS: LACOSAMIDE 100 MG TABLET GT SCH (10:36)
[2020-09-25 11:25] VITALS: BP_SYST 162
--- NOTE | 2020-09-25 11:38 | NUR ---
DISCHARGE PLANNING Called & left msg with Dr Rodriguez, for dc plan if ready to dc back to SNF.
[2020-09-25] MEDS: MILK OF MAGNESIA 30 ML UDC GT SCH (12:53)
[2020-09-25] MEDS ORDERED: VANCOMYCIN HCL 1 GM/NS PREMIX 250 ML IV SCH (13:00)
--- NOTE | 2020-09-25 13:01 | NUR ---
Discharge Planning: DCP faxed referral to ( [phone] p [phone]) DCP to follow up Addendum: 09/25/20 at 1344 by Kae Ambrose DP DCP faxed referral to [facility] p [phone]), DCP placed transportation on Will Call with [facility] ([phone]) pending room number, CM aware. Addendum: 09/26/20 at 1342 by Kae Ambrose DP Late Entry Disposition #03
--- NOTE | 2020-09-25 13:20 | NUR ---
DISCHARGE PLANNING Called & spoke with Dr Rodriguez & discussed dc plan. Gave ph order to dc back to [facility] today. Called & lt msg with Shruthi/PAIGE Wells, ph [phone], called & lt msg with Fiordaliza(brother in law)[phone]. Pt's nurse is aware. DC event planner faxed pt info to [facility] waiting for acceptance, placing transportation on will-call. Addendum: 09/25/20 at 1332 by Marguerite Mckinley RN Received call back from Shruthi Wells is agreeable with transfer back to [facility] today if bed avail & cleared. Updated pt's nurse that per Dr Rodriguez need to get clearance from Dr Mccarthy to dc to [facility] today.
--- NOTE | 2020-09-25 13:37 | NUR ---
PAGED: SPOKE WITH DR HEWITT FOR ELEVATED BP,WITH ORDERS GIVE CLONIDINE 0.1MG Q 6HOURS FOR SBP>160 ,DBP >100 PER G-TUBE.
[2020-09-25] MEDS ORDERED: cloNIDine HCL 0.1 MG TABLET PO PRN (13:45)
[2020-09-25 15:56] VITALS: BP_SYST 157
--- NOTE | 2020-09-25 16:10 | NUR ---
Patient to DC to [facility] [place] room 21 at 6 PM by [facility]-discharge code is 03
[2020-09-25 16:44] VITALS: BP_SYST 135
--- NOTE | 2020-09-25 17:30 | NUR ---
REPORT NOTES: REPORT GIVEN TO DARREN Renee RN FROM [facility].
--- NOTE | 2020-09-25 18:35 | NUR ---
D/C Patient Transfer packets given to [facility] EMT and report given as well. Exit Care provided.Family made aware of the transfer. Patient in stable condition, ID band removed and replaced with white band. IV catheter kept for IV antibiotics, intact dressing.All belongings sent with patient.[facility] ambulance transported pt to [facility] and in stable condition.
== END 2020-09-25 18:35 | DRG 871 ==
LOC: SED 09:29 → STU 12:03
PROVIDERS: ADMIT Internal Medicine; ATTEND Internal Medicine
DX: A41.81 Sepsis due to Enterococcus (principal); E43 Unspecified severe protein-calorie malnutrition; N17.0 Acute kidney failure with tubular necrosis; E87.2 Acidosis; N12 Tubulo-interstitial nephritis, not specified as acute or chronic; K94.22 Gastrostomy infection; L03.311 Cellulitis of abdominal wall; F03.90 Unspecified dementia, unspecified severity, without behavioral disturbance, psychotic disturbance, mood disturbance, and anxiety; G40.909 Epilepsy, unspecified, not intractable, without status epilepticus; E83.51 Hypocalcemia; E11.9 Type 2 diabetes mellitus without complications; E87.6 Hypokalemia; N63.10 Unspecified lump in the right breast, unspecified quadrant; M19.90 Unspecified osteoarthritis, unspecified site; R13.10 Dysphagia, unspecified; R23.3 Spontaneous ecchymoses; K80.20 Calculus of gallbladder without cholecystitis without obstruction; E86.0 Dehydration; Y83.3 Surgical operation with formation of external stoma as the cause of abnormal reaction of the patient, or of later complication, without mention of misadventure at the time of the procedure; R21 Rash and other nonspecific skin eruption; K76.9 Liver disease, unspecified; Z20.822 Contact with and (suspected) exposure to COVID-19; G93.89 Other specified disorders of brain; I11.9 Hypertensive heart disease without heart failure; N83.8 Other noninflammatory disorders of ovary, fallopian tube and broad ligament; K56.41 Fecal impaction; Z86.73 Personal history of transient ischemic attack (TIA), and cerebral infarction without residual deficits; Z86.61 Personal history of infections of the central nervous system; Z98.2 Presence of cerebrospinal fluid drainage device; Z68.28 Body mass index [BMI] 28.0-28.9, adult; Z88.1 Allergy status to other antibiotic agents; Z79.899 Other long term (current) drug therapy; Z86.14 Personal history of Methicillin resistant Staphylococcus aureus infection; Y92.89 Other specified places as the place of occurrence of the external cause; Z86.16 Personal history of COVID-19
CPT/HCPCS: 36415; 70450-TC; 71045; 76376; 76642; 80048; 80076; 80202; 81000; 82043; 82570; 83605; 83690; 83735; 84100; 84302; 85025; 87040-TC; 87081; 87086; 87186-TC; 87210-TC; 93005; 96365; G0378; J0610; J0696; J3370; J3475; J7030; J7050; J7060; Q9967